=== PATIENT | female | born 1950 | race Caucasian/White ===

== ENCOUNTER 2017-08-20 12:56 | Emergency (ER) | payer OTHER ==
[2017-08-20] MEDS: KETOROLAC 30 MG INJ IM (15:17)
== END 2017-08-20 17:21 | disposition home or self-care (01) ==
LOC: FTE 12:56
DX: M25.511 Pain in right shoulder (principal); M25.552 Pain in left hip; M25.551 Pain in right hip; M25.561 Pain in right knee; I10 Essential (primary) hypertension; Z79.82 Long term (current) use of aspirin
CPT/HCPCS: 72072; 72100; 72170; 73030-RT; 73562; 96372; 99284-25

== ENCOUNTER 2017-09-05 14:01 | Emergency (ER) | payer OTHER | END 2017-09-05 15:56 | disposition home or self-care (01) | LOC: E/R 15:56 | DX: S69.91XA Unspecified injury of right wrist, hand and finger(s), initial encounter (principal); S49.91XA Unspecified injury of right shoulder and upper arm, initial encounter; I10 Essential (primary) hypertension; W19.XXXA Unspecified fall, initial encounter; Y92.9 Unspecified place or not applicable; Z79.82 Long term (current) use of aspirin | CPT/HCPCS: 29130; 73030; 73130-LT; 73130-RT; 99284-25 ==

== ENCOUNTER 2018-08-06 22:02 | Emergency (ER) | payer MEDICARE, OTHER | END 2018-08-07 03:07 | disposition home or self-care (01) | LOC: FTE 22:02 | DX: M75.92 Shoulder lesion, unspecified, left shoulder (principal); M75.91 Shoulder lesion, unspecified, right shoulder; I10 Essential (primary) hypertension; Z79.82 Long term (current) use of aspirin | CPT/HCPCS: 99282 ==

== ENCOUNTER 2018-11-30 01:01 | Emergency (ER) | payer MEDICARE, OTHER ==
[2018-11-30] MEDS: SOD CHLORIDE 0.9% 500 ML IV (01:31)
[2018-11-30 01:34] LABS: ADD MAN DIFF? NO
[2018-11-30 01:37] LABS: BASOPHIL # 0.1 10^3/ul (0.0-0.1); BASOPHILS % 0.9 % (0.0-2.0); EOSINOPHILS % 0.5 % (0.0-7.0); HEMATOCRIT 39.2 % (37.0-47.0); HEMOGLOBIN 12.9 g/dl (12.0-16.0); LYMPHOCYTES # 2.1 10^3/ul (0.8-2.9); MEAN CORPUSCULAR HEMOGLOBIN 29.1 pg (29.0-33.0); MEAN CORPUSCULAR HGB CONC 32.9 g/dl (32.0-37.0); MEAN CORPUSCULAR VOLUME 88.5 fl (82.0-101.0); MEAN PLATELET VOLUME 10.1 fl (7.4-10.4); MONOCYTE # 0.5 10^3/ul (0.3-0.9); MONOCYTES % 5.7 % (0.0-11.0); NEUTROPHIL # 5.3 10^3/ul (1.6-7.5); NEUTROPHILS % 66.4 % (39.0-77.0); PLATELET COUNT 279 10^3/UL (140-415); RED BLOOD COUNT 4.43 10^6/ul (4.20-5.40); RED CELL DISTRIBUTION WIDTH 12.8 % (11.5-14.5)
[2018-11-30 01:54] LABS: ANION GAP 9 (5-13); BLOOD UREA NITROGEN 21 mg/dl (7-20); CALCIUM 9.2 mg/dl (8.4-10.2); CARBON DIOXIDE 28 mmol/L (21-31); CHLORIDE 108 mmol/L (97-110); CREATININE 0.74 mg/dl (0.44-1.00); Estimated GFR > 60 mL/min (>60); GLUCOSE 116 mg/dl (70-220); POTASSIUM 3.7 mmol/L (3.5-5.1); SODIUM 145 mmol/L (135-144)
[2018-11-30 01:56] LABS: INR 0.87; PROTIME 11.9 Sec (11.9-14.9); PT RATIO 0.9
[2018-11-30 01:57] LABS: PARTIAL THROMBOPLASTIN TIME 29.1 Sec (23.0-35.0)
[2018-11-30 02:06] LABS: TROPONIN-I < 0.012 ng/ml (0.000-0.120)
[2018-11-30] MEDS ORDERED: ACETAMINOPHEN 325 MG TAB PO (04:30)
[2018-11-30] MEDS ORDERED: ONDANSETRON 4 MG INJ IV (04:30)
== END 2018-11-30 15:05 | disposition home or self-care (01) ==
LOC: E/R 01:01
DX: R55 Syncope and collapse (principal); I10 Essential (primary) hypertension; Z79.82 Long term (current) use of aspirin
CPT/HCPCS: 36415; 70450; 71045; 80048; 84484; 85025; 85610; 85730; 93005; 93306; 93880; 99285-25